=== PATIENT | male | born 1955 | race Caucasian/White ===

== ENCOUNTER → 2023-08-22 07:45 | Outpatient (REF) | payer MEDICARE, BC, SELFPAY | LOC: DHCBC/DCA 07:45 | PROVIDERS: ATTENDING PHYSICIAN Internal Medicine Cardiovascular Disease; FAMILY PHYSICIAN Student in an Organized Health Care Education/Training Program | DX: I50.30 Unspecified diastolic (congestive) heart failure (principal); I11.9 Hypertensive heart disease without heart failure; R06.02 Shortness of breath | CPT/HCPCS: 78452; 93017; A9500 ==

== ENCOUNTER → 2023-11-07 15:40 | Outpatient (REF) | payer MEDICARE, BC, SELFPAY | LOC: HWRAD 15:40 | PROVIDERS: ATTENDING PHYSICIAN Student in an Organized Health Care Education/Training Program | DX: M79.645 Pain in left finger(s) (principal) | CPT/HCPCS: 73130 ==